=== PATIENT | female | born 1955 | race Caucasian/White ===

== ENCOUNTER 2023-12-20 11:17 | Day surgery (SDC) | payer BC ==
[2023-12-19 12:18] VITALS: BMI 20.6
[2023-12-20] MEDS ORDERED: Zolpidem Tartrate 5 MG TAB PO PRN (12:00)
[2023-12-20] MEDS ORDERED: Ondansetron PF 4 MG/2 ML Vial IVP PRN (12:00)
[2023-12-20] MEDS ORDERED: Ropivacaine 0.2% 550 ML 550 ML NERVE BLCK SCH (12:00)
[2023-12-20] MEDS ORDERED: Promethazine HCl 25 MG/ML VIAL IM PRN (12:00)
[2023-12-20] MEDS ORDERED: fentaNYL 50 mcg/mL 1 mL Vial ONE (13:08)
[2023-12-20] MEDS ORDERED: Ondansetron PF 4 MG/2 ML Vial ONE (13:08)
[2023-12-20] MEDS ORDERED: PROPOFOL 20 ML ONE (13:08)
[2023-12-20] MEDS ORDERED: Dexamethasone 4 mg/ml Vial ONE (13:08)
[2023-12-20] MEDS ORDERED: Lidocaine 1% PF 5 ML VIAL ONE (13:08)
[2023-12-20] MEDS ORDERED: Clindamycin/D5W 600 mg/50 ml Premix Bag ONE (13:22)
[2023-12-20] MEDS ORDERED: ePHEDrine Sulfate 50 MG/10 ML VIAL ONE (13:46)
[2023-12-20] MEDS ORDERED: Bupivacaine PF 0.5% 30 ML VIAL ONE (13:57)
== END 2023-12-20 16:45 | disposition home or self-care (01) ==
LOC: CSHSDC 11:17
PROVIDERS: ATTEND Podiatrist Foot & Ankle Surgery
PROC: 0SGN04Z Fusion of Left Metatarsal-Phalangeal Joint with Internal Fixation Device, Open Approach (ICD-10-PCS; principal; 2023-12-20)
DX: M20.12 Hallux valgus (acquired), left foot (principal); M25.572 Pain in left ankle and joints of left foot; I10 Essential (primary) hypertension; H40.9 Unspecified glaucoma; E03.9 Hypothyroidism, unspecified; Z98.41 Cataract extraction status, right eye; Z98.42 Cataract extraction status, left eye; Z98.890 Other specified postprocedural states; Z79.890 Hormone replacement therapy; Z88.2 Allergy status to sulfonamides; Z88.0 Allergy status to penicillin; Z79.899 Other long term (current) drug therapy
CPT/HCPCS: A4306; C1713; C1769; C1776; J0665; J1100; J2405; J2704; J2795; J3010; J3490